=== PATIENT | female | born 1970 ===

== ENCOUNTER 2018-06-23 08:00 | Day surgery (SDC) | payer OTHER ==
[~2018-06-23 08:00] MED LIST: [UNRECOGNIZED DRUG - OTHER]
== END 2018-06-23 14:42 | disposition home or self-care (01) ==
LOC: AMB-ENDOS 08:00
DX: D12.5 Benign neoplasm of sigmoid colon (principal); K57.30 Diverticulosis of large intestine without perforation or abscess without bleeding; K64.1 Second degree hemorrhoids